=== PATIENT | female | born 1960 | race Caucasian/White ===

== ENCOUNTER 2019-07-10 17:10 | Emergency (ER) | payer MEDICAID ==
[~2019-07-10] VITALS: Ht 152.4 cm; Wt 90.9 kg
[2019-07-10 17:50] VITALS: Ht 152.4 cm; Wt 90.9 kg
[2019-07-10] MEDS ORDERED: DIABETIC (17:52)
[2019-07-10] MEDS ORDERED: ALBUTEROL SULF8.5 GM INH (18:56)
[2019-07-10 19:39] VITALS: BP 131/81
== END 2019-07-10 19:41 | disposition home or self-care (01) ==
LOC: D.ER 17:10
DX: J06.9 Acute upper respiratory infection, unspecified (principal); J40 Bronchitis, not specified as acute or chronic; R09.81 Nasal congestion; R09.89 Other specified symptoms and signs involving the circulatory and respiratory systems; R05 Cough; R06.2 Wheezing; R51 Headache; E11.9 Type 2 diabetes mellitus without complications; I10 Essential (primary) hypertension; Z72.0 Tobacco use